=== PATIENT | male | born 1935 | race Caucasian/White ===

== ENCOUNTER 2019-04-11 11:09 | Day surgery (SDC) | payer OTHER, BC ==
[2019-04-07 16:47] VITALS: BMI 18.6
[2019-04-11 12:17] VITALS: BP 115/56; TEMP 98.2
[2019-04-11 13:11] VITALS: PULSE 46
--- NOTE | 2019-04-13 17:30 | PATH ---
Surgical Pathology Report Patient Name: FRED LECHUGA [facility]. Rec. #: [id number] /Age/Gender: 1935 (Age: 83) / M Account: [id number] Location: [facility] Taken: 04/11/2019 Received: 04/11/2019 Reported: 04/13/2019 Physicians: Chris Pozo M.D. Specimen(s) Received RANDOM RECTUM Clinical History Change in bowel habits Postoperative diagnosis: Rule out microscopic colitis Final Diagnosis RECTUM, RANDOM, BIOPSY: COLONIC MUCOSA WITH FOCAL EXTRAVASATION OF RED BLOOD CELLS AND SMALL LYMPHOID AGGREGATE WITHIN LAMINA PROPRIA. Electronically Signed Brenda Conde M.D. Gross Description Received in formalin, labeled "biopsy random rectum" are 4 shaikh, irregular portions of soft tissue ranging from 0.3-0.6 cm. in greatest dimension. The specimens are submitted in toto in one cassette. 04/12/201904/12/2019
== END 2019-04-11 13:00 | disposition home or self-care (01) ==
LOC: FASU-ENDO 11:09
PROVIDERS: ATTEND Internal Medicine Gastroenterology
PROC: 0DBN8ZX Excision of Sigmoid Colon, Via Natural or Artificial Opening Endoscopic, Diagnostic (ICD-10-PCS; 2019-04-11)
PROC: 0DBP8ZX Excision of Rectum, Via Natural or Artificial Opening Endoscopic, Diagnostic (ICD-10-PCS; principal; 2019-04-11 11:45)
DX: K62.89 Other specified diseases of anus and rectum (principal); R19.4 Change in bowel habit; R19.7 Diarrhea, unspecified
CPT/HCPCS: 88305-TC